=== PATIENT | female | born 1995 | race Caucasian/White ===

== ENCOUNTER 2019-01-07 11:27 | Inpatient (IN) | payer MEDICAID ==
[2019-01-07] MEDS: LACTATED RINGER'S 1,000 ML IV (12:57)
[2019-01-07] MEDS: ACETAMINOPHEN 1000MG/100ML IV 100 ML IVPB (12:58)
[2019-01-07] MEDS: ONDANSETRON 4 MG INJ IV ×2 (13:52→21:42)
[2019-01-07] MEDS: RANITIDINE 150 MG TAB PO (14:21)
[2019-01-07] MEDS: DEXTROSE 5%-LR 1,000 ML IV (17:08)
[2019-01-07] MEDS: morphine 4 MG/ML VIAL IV ×2 (17:08→21:24)
[2019-01-07] MEDS: PANTOPRAZOLE 40 MG INJ IV (21:42)
[2019-01-07] MEDS: BETAMET NA PHOS/AC (6 MG/ML) 2 ML INJ SYG IM (23:50)
[2019-01-08] MEDS: DEXTROSE 5%-LR 1,000 ML IV ×3 (01:15→20:30)
[2019-01-08] MEDS: morphine 4 MG/ML VIAL IV ×6 (01:16→22:27)
[2019-01-08] MEDS: ONDANSETRON 4 MG INJ IV (05:29)
[2019-01-08] MEDS: PANTOPRAZOLE 40 MG INJ IV (05:30)
[2019-01-08] MEDS: BISACODYL 10 MG SUPP PR (08:37)
[2019-01-08] MEDS ORDERED: PIPER-TAZO 3.375 GM IV (PMX) 100 ML IVPB (11:00)
[2019-01-08] MEDS: PIPER-TAZO 3.375 GM IV (PMX) 100 ML IVPB ×3 (11:21→23:49)
[2019-01-08] MEDS: ACETAMINOPHEN 500 MG TAB PO (16:43)
[2019-01-08] MEDS: MAGNESIUM HYDROXIDE 30ML CUP PO (17:36)
[2019-01-08] MEDS: BETAMET NA PHOS/AC (6 MG/ML) 2 ML INJ SYG IM (23:50)
[2019-01-09] MEDS: DEXTROSE 5%-LR 1,000 ML IV ×2 (05:30→11:07)
[2019-01-09] MEDS: PANTOPRAZOLE 40 MG INJ IV (05:30)
[2019-01-09] MEDS: PIPER-TAZO 3.375 GM IV (PMX) 100 ML IVPB ×2 (05:31→11:12)
[2019-01-09] MEDS: morphine 4 MG/ML VIAL IV (09:31)
== END 2019-01-09 12:39 | disposition short-term general hospital (02) | DRG 833 ==
LOC: OBT 11:27 → L-D 11:27 → OBT 11:44 → L-D 11:52 → PP1 12:56
DX: O26.893 Other specified pregnancy related conditions, third trimester (principal); K43.9 Ventral hernia without obstruction or gangrene; Z3A.28 28 weeks gestation of pregnancy
CPT/HCPCS: 74181; 76705; 76775; 76815; 76817; 76818; 80053; 81001; 81003; 82550; 82553; 83690; 84484; 85025; 85610; 85730; 87086; 93005